=== PATIENT | female | born 1990 | race Caucasian/White ===

== ENCOUNTER 2017-06-24 22:27 | Emergency (ER) | payer BC, OTHER ==
--- NOTE | 2017-06-24 22:30 | PDOC ---
History of Present Illness - General Chief Complaint: Ear Problem Stated Complaint: earing post stuck in lobe Time Seen by Provider: 06/24/17 22:30 History Source: Patient - History of Present Illness Initial Comments: 06/24/17 23:50 27F no sig PMHx with cc of earring backing "stuck inside earlobe". Pt noted that tonight, she was changing her earrings and noted that the earring backing entered inside the earlobe. She attempted to extract it by putting the post of the earring into the piercing hole, but this was unsuccessful. As she continued to attempt to get the backing out, the earlobe got increasingly swollen and painful. This has happened once before, due to the large size of her piercings. Denies drainage from the hole, +slight bleeding but not active, no other complaints. Past History - Past Medical History Allergies/Adverse Reactions: Allergies Allergy/AdvReac Type Severity Reaction Status Date / Time No Known Allergies Allergy Unverified 06/24/17 22:30 Home Medications: Ambulatory Orders Cephalexin [Keflex] 500 mg PO BID 5 Days #10 capsule 06/24/17 Review of Systems - Review of Systems Able to Perform ROS?: Yes Is the patient limited Prydeinig proficient: No Constitutional: Yes: See HPI. No: Fever HEENTM: Yes: Symptoms Reported (+foreign body sensation in R earlobe) Respiratory: No: Shortness of Breath Cardiac (ROS): No: Chest Pain Neurological: No: Headache, Numbness, Paresthesia All Other Systems: Reviewed and Negative *Physical Exam - Physical Exam General Appearance: Yes: Nourished, Appropriately Dressed. No: Apparent Distress HEENT: positive: Other (+ swelling with erythema to R earlobe, +palpable FB in lobe with associated tenderness) Respiratory/Chest: positive: Lungs Clear Cardiovascular: positive: Regular Rhythm, Regular Rate Musculoskeletal: positive: Normal Inspection Extremity: positive: Normal Capillary Refill Integumentary: positive: Normal Color. negative: Cyanotic, Erythema Procedures - Additional Procedures Progress: 06/24/17 23:56 Foreign body removal R earlobe. Earlobe was cleansed with betadine 1% lidocaine, 1cc was injected into lobe near the isolated FB With pickup, the FB was pushed through and out of the earlobe from anterior to posterior Pt tolerated procedure well Medical Decision Making - Medical Decision Making 06/24/17 23:23 27F with backing of earring stuck in earlobe. 1cc lidocaine was injected in earlobe to anesthesize the area and the butterfly backing was removed from the back of the ear. There is a reasonable amount of swelling and erythema to the lobe, will trx with a short course of keflex. Recommend alcohol soaks, bacitracin and f/u with PMD. Return if sxs worsen. *DC/Admit/Observation/Transfer Diagnosis at time of Disposition: Acute foreign body of earlobe - Discharge Dispostion Disposition: HOME Condition at time of disposition: Improved Admit: No - Prescriptions Prescriptions: Cephalexin [Keflex] 500 mg PO BID 5 Days #10 capsule - Referrals - Patient Instructions Printed Discharge Instructions: DI for Removal of Foreign Body From Skin Additional Instructions: You were seen in the ER for removal of the backing of your earring. Your ear was numbed with medication and the backing was removed. Because of the swelling to the ear, you were given a course of antibiotics to prevent infection. At home , keep the area clean, you can apply alcohol or hydrogen peroxide to the ear and you may also apply bacitracin. If you notice more swelling, pus from the ear , fever/chills or other symptoms, return to the ER or to your primary care doctor. DO NOT USE EARRINGS WITH SMALL BACKINGS ANYMORE to prevent this from happening again. - Post Discharge Activity
[2017-06-24 22:36] VITALS: BP 115/85; PULSE 85; TEMP 98.8; BMI 33.5
[2017-06-24] MEDS ORDERED: IBUPROFEN 600 MG TABLET (FP) PO ONE ×2 (23:22→23:28)
[2017-06-24] MEDS ORDERED: CEPHALEXIN MONOHYDRATE 500 MG CAPSULE (UD) PO ONE (23:23)
[2017-06-24] MEDS ORDERED: CEPHALEXIN MONOHYDRATE 500 MG CAPSULE (UD) ONE (23:29)
[2017-06-24] MEDS ORDERED: DIPHTH,PERTUSS(ACELL),TET 0.5 ML DISP.SYRIN IM ONE (23:34)
== END 2017-06-24 23:44 | disposition home or self-care (01) ==
LOC: FER 22:27
PROC: 09C0XZZ Extirpation of Matter from Right External Ear, External Approach (ICD-10-PCS; principal; 2017-06-24)
DX: T16.1XXA Foreign body in right ear, initial encounter (principal); X58.XXXA Exposure to other specified factors, initial encounter; Y93.9 Activity, unspecified; Y92.9 Unspecified place or not applicable
CPT/HCPCS: 84703; 90715; 99282-25

== ENCOUNTER 2020-06-15 23:12 | Emergency (ER) | payer OTHER ==
[2020-06-16] MEDS ORDERED: ALBUTEROL SO4 HFA INHALER IH ONE ×2 (00:20→00:39)
[2020-06-16 00:25] VITALS: BP 133/79; PULSE 87; TEMP 99; BMI 32.5
[2020-06-16 01:42] LABS: BASO % 0.4 % (0-2.0); EOS % 4.4 % (0-4.5); HEMATOCRIT 36.8 % (32.4-45.2); HEMOGLOBIN 12.3 GM/dL (10.7-15.3); LYMPH % 38.3 % (8-40); MCH 28.7 pg (25.7-33.7); MCHC 33.4 g/dl (32.0-36.0); MEAN CELL VOLUME 85.9 fl (80-96); MONO % 7.8 % (3.8-10.2); NEUT % 49.1 % (42.8-82.8); PLATELET COUNT 332 K/MM3 (134-434); RBC 4.28 M/mm3 (3.60-5.2); RDW 13.6 % (11.6-15.6); WHITE BLOOD COUNT 8.2 K/mm3 (4.0-10.0)
[2020-06-16 02:02] LABS: BLOOD UREA NITROGEN 14.9 mg/dL (7-18); CALCIUM 9.5 mg/dL (8.5-10.1)
[2020-06-16 02:06] LABS: CREATININE 0.7 mg/dL (0.55-1.3)
== END 2020-06-16 02:27 | disposition home or self-care (01) ==
LOC: FER 23:12
PROC: 3E0F7GC Introduction of Other Therapeutic Substance into Respiratory Tract, Via Natural or Artificial Opening (ICD-10-PCS; principal; 2020-06-16)
DX: U07.1 COVID-19 (principal)
CPT/HCPCS: 36415; 71045-TC-FY; 80048; 85025; 85379; 93005; 99284-25